=== PATIENT | female | born 1970 | race Caucasian/White ===

== ENCOUNTER 2018-01-07 16:55 | Emergency (ER) | payer OTHER ==
[2018-01-07 17:00] VITALS: BP 142/85; PULSE 87; TEMP 98; BMI 29.0
--- NOTE | 2018-01-07 17:51 | PDOC ---
History of Present Illness - General Chief Complaint: Pain, Acute Stated Complaint: KNEE PAIN Time Seen by Provider: 01/07/18 17:32 History Source: Patient Exam Limitations: No Limitations - History of Present Illness Initial Comments: 01/07/18 17:52 Best Contact: Pmhx: Chronic left knee pain Pshx: 14 yo: right ankle fx; prior to age 9: right forearm compound fx Allergies:NKDA 47-year-old female presents to the emergency department complaining of right chronic knee pain since August 2017. Patient states back in August, while wearing flip-flops, she was carrying bar old chairs from her neighbor who lives across the street. Patient states the curb is elevated when she thought it was flat causing her to rastafari and fall onto her left knee. Patient has seen 2 asw specialist and went to 2 different emergency departments in the [place] in September 2017. Patient had x-ray and MRI which shows possible ligament injuries. Patient comes in today stating her pain is 4/5 dull nonradiating intermittent discomfort. The pain is exacerbated on touch and alleviated at rest. Patient denies any acute injuries. Patient denies prolonged sitting, calf pains, chest pain, recent flight., OCP use Past History - Past Medical History Allergies/Adverse Reactions: Allergies Allergy/AdvReac Type Severity Reaction Status Date / Time No Known Allergies Allergy Verified 01/07/18 16:56 Home Medications: Ambulatory Orders NK [No Known Home Medication] 01/07/18 COPD: No - Suicide/Smoking/Psychosocial Hx Smoking History: Current every day smoker Have you smoked in the past 12 months: Yes Number of Cigarettes Smoked Daily: 20 Information on smoking cessation initiated: Yes 'Breaking Loose' booklet given: 01/07/18 Hx Alcohol Use: No Drug/Substance Use Hx: No Substance Use Type: None Review of Systems - Review of Systems Able to Perform ROS?: Yes Comments:: 01/07/18 17:55 CONSTITUTIONAL: Absent: fever, chills, diaphoresis, generalized weakness, malaise, loss of appetite MUSCULOSKELETAL: +Right knee pain Neg ext numbness/tingling sensation Absent: myalgia, arthralgia, joint swelling SKIN: Absent: rash, itching, pallor HEMATOLOGIC/IMMUNOLOGIC: Absent: easy bleeding, easy bruising, lymphadenopathy, frequent infections ENDOCRINE: Absent: unexplained weight gain, unexplained weight loss, heat intolerance, cold intolerance NEUROLOGIC: Absent: headache, focal weakness or paresthesias, dizziness, unsteady gait, seizure, mental status changes, bladder or bowel incontinence Is the patient limited Prydein[place] proficient: No *Physical Exam - Vital Signs Last Vital Signs Temp Pulse Resp BP Pulse Ox 98.0 F 87 18 142/85 100 01/07/18 16:56 01/07/18 16:56 01/07/18 16:56 01/07/18 16:56 01/07/18 16:56 - Physical Exam Comments: 01/07/18 17:56 GENERAL: Well developed, well nourished. Awake and alert. No acute distress. HEENT: Normocephalic, atraumatic. PERRLA, EOMI. No conjunctival pallor. Sclera are non- icteric. Moist mucous membranes. Oropharynx is clear. NECK: Supple. Full ROM. No JVD. Carotid pulses 2+ and symmetric, without bruits. No thyromegaly. No lymphadenopathy. CARDIOVASCULAR: Regular rate and rhythm. No murmurs, rubs, or gallops. Distal pulses are 2+ and symmetric. PULMONARY: No evidence of respiratory distress. Lungs clear to auscultation bilaterally. No wheezing, rales or rhonchi. ABDOMINAL: Soft. Non-tender. Non-distended. No rebound or guarding. No organomegaly. Normoactive bowel sounds. MUSCULOSKELETAL Normal range of motion at all joints. No bony deformities or tenderness. No CVA tenderness. EXTREMITIES: No cyanosis. No clubbing. No edema. No calf tenderness. SKIN: Warm and dry. Normal capillary refill. No rashes. No jaundice. Left knee: Full range of motion No obvious deformity No obvious swelling appreciated Patient states pain whenever I touch any Negative Homans test left ankle Full range of motion 2+ DP pulse Left hip Full range of motion No pain on palpation *DC/Admit/Observation/Transfer Diagnosis at time of Disposition: Chronic pain of left knee - Discharge Dispostion Disposition: HOME Condition at time of disposition: Stable Admit: No - Referrals Referrals: Wai Estrella MD [Staff Physician] - - Patient Instructions Printed Discharge Instructions: DI for Knee Pain Additional Instructions: Ice; 20 mins on alternating with 20 mins off for 48 hours while awake. Rest Elevate Follow up with your orthopedic surgeon or the one listed on the discharge form. Return to the ER for severe/persistent/worsening symptoms, extremity numbness/ tingling sensation. - Post Discharge Activity
== END 2018-01-07 17:53 | disposition home or self-care (01) ==
LOC: JERFT 16:55
DX: M25.562 Pain in left knee (principal); G89.29 Other chronic pain; W18.39XA Other fall on same level, initial encounter; Y93.89 Activity, other specified; Y92.480 Sidewalk as the place of occurrence of the external cause
CPT/HCPCS: 99281-25

== ENCOUNTER 2019-07-26 15:24 | Emergency (ER) | payer OTHER ==
--- NOTE | 2019-07-26 15:35 | PDOC ---
Rapid Medical Evaluation Time Seen by Provider: 07/26/19 15:30 Medical Evaluation: Allergies Allergy/AdvReac Type Severity Reaction Status Date / Time No Known Allergies Allergy Verified 01/07/18 16:56 07/26/19 15:31 I have performed a brief in-person evaluation of this patient. The patient presents with a chief complaint of: vomiting, diarrhea, abdominal pain for 3 days. Wants detox from heroin, cocaine, percocet. Last used today I have ordered the following: Labs, line, UA, Utox The patient will proceed to the ED for further evaluation. Discharge Disposition - Diagnosis Substance abuse - Referrals - Patient Instructions - Post Discharge Activity
[2019-07-26] MEDS ORDERED: ONDANSETRON 4 MG/2 ML VIAL IVPUSH ONE (15:37)
[2019-07-26] MEDS ORDERED: FAMOTIDINE 20 MG/50 ML IVPB 20 MG/50 ML MG IVPB ONE (15:37)
[2019-07-26 15:40] VITALS: BP 131/80; PULSE 94; TEMP 97.9; BMI 25.8
[2019-07-26 16:09] LABS: EOS % 0.6 % (0-4.5); HEMATOCRIT 40.2 % (32.4-45.2); HEMOGLOBIN 14.2 GM/dL (10.7-15.3); LYMPH % 24.3 % (8-40); MCHC 35.3 g/dl (32.0-36.0); MEAN CELL VOLUME 90.8 fl (80-96); MEAN PLT VOLUME 8.7 fl (7.5-11.1); MONO % 7.2 % (3.8-10.2); NEUT % 66.9 % (42.8-82.8); PLATELET COUNT 244 K/MM3 (134-434); RBC 4.42 M/mm3 (3.60-5.2); RDW 13.7 % (11.6-15.6); WHITE BLOOD COUNT 5.6 K/mm3 (4.0-10.0)
[2019-07-26 16:16] LABS: URINE APPEARANCE CLEAR; URINE BILIRUBIN NEGATIVE (NEGATIVE); URINE COLOR YELLOW; URINE GLUCOSE (UA) NEGATIVE (NEGATIVE); URINE KETONE NEGATIVE (NEGATIVE); URINE LEUK ESTERASE NEGATIVE (NEGATIVE); URINE NITRITE NEGATIVE (NEGATIVE); URINE PROTEIN NEGATIVE (NEGATIVE); URINE UROBILINOGEN 0.2 mg/dL (0.2-1.0)
[2019-07-26 16:35] LABS: ALBUMIN 4.6 g/dl (3.4-5.0); BILIRUBIN,TOTAL 0.4 mg/dL (0.2-1); BLOOD UREA NITROGEN 7.5 mg/dL (7-18); CREATININE 0.7 mg/dL (0.55-1.3); TOT PROT 7.9 g/dl (6.4-8.2)
[2019-07-26] MEDS ORDERED: ONDANSETRON *ODT* 4 MG TABLET SL ONE (17:01)
[2019-07-26] MEDS ORDERED: RANITIDINE HCL 150 MG TABLET (FP) PO ONE (17:01)
[2019-07-26] MEDS ORDERED: MAG HYDROX/AL HYDROX/SIMETH 30 ML UNIT-DOSE CUP PO ONE (17:02)
--- NOTE | 2019-07-26 17:02 | PDOC ---
History of Present Illness - General Chief Complaint: Substance Abuse Stated Complaint: DETOX Time Seen by Provider: 07/26/19 15:30 History Source: Patient - History of Present Illness Initial Comments: 07/26/19 16:56 48 year old female c/o IV cocaine, heroin, percocet for the last 3 weeks, denies fever/ chills, chest pain, patient reports nausea, vomiting, generalized pain. patient was on the Suboxone. patient has been part of [facility] outpatient program. Psychiatrist Dr. Cox. 07/26/19 17:13 Past History - Past Medical History Allergies/Adverse Reactions: Allergies Allergy/AdvReac Type Severity Reaction Status Date / Time No Known Allergies Allergy Verified 07/26/19 15:38 Home Medications: Ambulatory Orders NK [No Known Home Medication] 01/07/18 COPD: No Psychiatric Problems: (bipolar, schixophrenis, manic depressive, agoraphobia) Other medical history: addiction - Psycho Social/Smoking Cessation Hx Smoking History: Current every day smoker Have you smoked in the past 12 months: Yes Number of Cigarettes Smoked Daily: 20 Information on smoking cessation initiated: No 'Breaking Loose' booklet given: 01/07/18 Hx Alcohol Use: Yes Drug/Substance Use Hx: Yes (today) Substance Use Type: None Review of Systems - Review of Systems Able to Perform ROS?: Yes Is the patient limited [place] proficient: No Constitutional: Yes: Other (generalized pain). No: Symptoms Reported, See HPI, Chills, Diaphoresis, Fever, Loss of Appetite, Malaise, Night Sweats, Weakness, Weight Stable, Unintentional Wgt. Loss, Unexplained wgt Loss ABD/GI: Yes: Nausea, Vomiting *Physical Exam - Vital Signs Last Vital Signs Temp Pulse Resp BP Pulse Ox 97.9 F 94 H 16 131/80 99 07/26/19 15:26 07/26/19 15:26 07/26/19 15:26 07/26/19 15:26 07/26/19 15:26 - Physical Exam General Appearance: Yes: Appropriately Dressed Respiratory/Chest: positive: Lungs Clear, Normal Breath Sounds Cardiovascular: positive: Regular Rhythm, Regular Rate Gastrointestinal/Abdominal: positive: Normal Bowel Sounds, Tender (LUQ, left pelvic area tenderness) Extremity: positive: Normal Capillary Refill, Normal Inspection, Normal Range of Motion Integumentary: positive: Normal Color, Dry, Warm Neurologic: positive: Fully Oriented, Alert, Normal Mood/Affect Heart Score/ECG Review - History History: Slightly suspicious - Electrocardiogram EKG: Normal - Age Age: 45-65 - Risk Factors Based on the list above the patient has:: No risk factors known - Troponin Troponin: </= normal limit - Score Heart Score - Total: 1 - ECG Intrepretation Rhythm: Regular Rhythm Comment:: 07/26/19 17:24 NSR: 74 bpm ED Treatment Course - LABORATORY CBC & Chemistry Diagram: 07/26/19 15:54 07/26/19 15:54 - ADDITIONAL ORDERS Additional order review: Laboratory Results 07/26/19 07/26/19 07/26/19 15:54 15:54 15:54 Sodium 139 Potassium 4.0 Chloride 106 Carbon Dioxide 24 Anion Gap 9 BUN 7.5 Creatinine 0.7 Est GFR (CKD-EPI)AfAm 117.91 Est GFR (CKD-EPI)NonAf 101.74 Random Glucose 121 H Calcium 9.0 Total Bilirubin 0.4 AST 27 ALT 45 Alkaline Phosphatase 73 Total Protein 7.9 Albumin 4.6 Urine Color Yellow Urine Appearance Clear Urine pH 6.0 Ur Specific Weiner 1.007 L Urine Protein Negative Urine Glucose (UA) Negative Urine Ketones Negative Urine Blood Negative Urine Nitrite Negative Urine Bilirubin Negative Urine Urobilinogen 0.2 Ur Leukocyte Esterase Negative Urine HCG, Qual Negative 07/26/19 15:54 RBC 4.42 MCV 90.8 MCHC 35.3 RDW 13.7 MPV 8.7 Neutrophils % 66.9 Lymphocytes % 24.3 Monocytes % 7.2 Eosinophils % 0.6 Basophils % 1.0 Medical Decision Making - Medical Decision Making a: PELVIC PAIN p: cbC cmp TRANSVAGINAL US" RIGHT ovarian cyst/ fibroid uterus ekG/ TROPONIN NEGATIVE 07/26/19 18:43 I spoke to patient psychiatrist requesting patient to go to [facility] for possible bed. I spoke to [facility] report said no opioid detox personnel available today for intake. I also spoke to [facility] reports that there is no detox/rehab bed available. I spoke to [facility] also do not have bed right now patient was advised to come back in the a.m. for possible detox bed availability. Patient is informed of all the possible availabilities for detox beds in the area. Patient at this point is medically cleared for discharge. Advised to refrain from using polysubstance. Patient verbalized agreement to return to [facility] in the morning for possible bed. 07/26/19 18:46 Discharge - Discharge Information Problems reviewed: Yes Clinical Impression/Diagnosis: Pelvic pain, Polysubstance abuse Disposition: HOME - Follow up/Referral - Patient Discharge Instructions Patient Printed Discharge Instructions: Substance Use Disorder Additional Instructions: Refrain from using drugs. Return to the [facility] tomorrow morning for possible detox admission. Drink plenty of fluids. Your pelvic ultrasound is negative. - Post Discharge Activity
[2019-07-26] MEDS ORDERED: ACETAMINOPHEN 325 MG TABLET (FP) PO ONE (17:03)
[2019-07-26 17:41] LABS: LIPASE 55 U/L (73-393); MAGNESIUM 2.2 mg/dL (1.8-2.4); PHOSPHOROUS 3.5 mg/dL (2.5-4.9)
[2019-07-26] MEDS ORDERED: MAG HYDROX/AL HYDROX/SIMETH 30 ML UNIT-DOSE CUP ONE (19:07)
[2019-07-26] MEDS ORDERED: ACETAMINOPHEN 325 MG TABLET (FP) ONE (19:07)
[2019-07-26] MEDS ORDERED: ONDANSETRON *ODT* 4 MG TABLET ONE (19:07)
--- NOTE | 2019-07-27 20:22 | EKG ---
Test Reason : Blood Pressure : / mmHG Vent. Rate : 074 BPM Atrial Rate : 074 BPM P-R Int : 130 ms QRS Dur : 086 ms QT Int : 394 ms P-R-T Axes : 041 025 032 degrees QTc Int : 437 ms NORMAL SINUS RHYTHM NORMAL ECG NO PREVIOUS ECGS AVAILABLE Confirmed by MD SUDHIR, WILLEM ([id number]) on 07/27/2019 8:21:40 PM Referred By: Confirmed By:WILLEM PEGUERO MD
== END 2019-07-26 19:23 | disposition home or self-care (01) ==
LOC: JER 15:24
DX: F19.10 Other psychoactive substance abuse, uncomplicated (principal); R10.2 Pelvic and perineal pain; F17.210 Nicotine dependence, cigarettes, uncomplicated; F31.9 Bipolar disorder, unspecified; F20.9 Schizophrenia, unspecified; F40.00 Agoraphobia, unspecified
CPT/HCPCS: 36415; 76830-TC; 80053; 81003; 83690; 83735; 84100; 84484; 84702; 84703; 85025; 87086; 93005; 93010; 99282-25